=== PATIENT | female | born 1990 | race Caucasian/White ===

== ENCOUNTER → 2025-04-30 08:47 | Outpatient (REF) | payer BC, OTHER, SELFPAY | LOC: PNTC 08:47 | PROVIDERS: ATTENDING PHYSICIAN Obstetrics & Gynecology | DX: O36.60X0 Maternal care for excessive fetal growth, unspecified trimester, not applicable or unspecified (principal); O09.529 Supervision of elderly multigravida, unspecified trimester | CPT/HCPCS: 76816 ==

== ENCOUNTER 2025-05-06 23:16 | Inpatient (IN) | payer BC, OTHER, SELFPAY ==
[2025-05-06 23:36] VITALS: BP 118/83; BMI 30.6
[2025-05-07] MEDS: LR 1000 IV ×2 (00:22→01:22)
[2025-05-07 01:09] LABS: % Basophils 0.5 % (0-2); % Eosinophils 1.8 % (0-6); % Immature Granulocytes 0.4 % (0-0.5); % Lymphocytes 24.7 % (20.5-51.1); % Monocytes 7.4 % (1.7-9.3); % Neutrophils 65.2 % (42.2-75.2); Absolute Eosinophils 0.2 10^3/uL (0-0.7); Absolute Monocytes 0.6 10^3/uL (0.1-0.6); Absolute Neutrophils 5.3 10^3/uL (1.4-6.5); Hematocrit 37.1 % (37.0-47.0); Hemoglobin 12.8 g/dL (12.0-16.0); Mean Corp Hgb Conc. 34.5 g/dL (33.0-37.0); Mean Corpuscular Hgb 31.8 pg (27.0-31.0); Mean Corpuscular Volume 92.3 fL (81.0-99.0); Mean Platelet Volume 11.3 fL (7.4-10.4); Nucleated Red Blood Cells % 0 %; Platelet Count 193 10^3/uL (130-400); Red Blood Cell Count 4.02 10^6/uL (4.20-5.40); Red Cell Dist. Width 12.4 % (11.5-14.5); White Blood Cell Count 8.1 10^3/uL (4.8-10.8)
[2025-05-07] MEDS: STADOL 1 MG IV (06:46)
[2025-05-07] MEDS: PITOCIN 30 UNITS/NSS 500 ML IV (06:49)
[2025-05-07] MEDS: MOTRIN 600 MG PO ×2 (11:17→17:39)
[2025-05-07] MEDS: SENOKOT-S 1 TABLET PO (17:39)
[2025-05-07] MEDS: TYLENOL 650 MG PO (20:30)
[2025-05-08] MEDS: MOTRIN 600 MG PO ×4 (03:27→21:29)
[2025-05-08] MEDS: TYLENOL 650 MG PO ×4 (03:27→21:29)
[2025-05-08 05:07] LABS: Hematocrit 36.1 % (37.0-47.0); Hemoglobin 12.1 g/dL (12.0-16.0)
[2025-05-08] MEDS: SENOKOT-S 1 TABLET PO (09:13)
[2025-05-08] MEDS: PRENATAL PLUS 1 TABLET PO (09:13)
[2025-05-08 14:10] LABS: Syphilis/T. pallidum Ab Reflex Negative (Negative)
[2025-05-09] MEDS: TYLENOL 650 MG PO (08:13)
[2025-05-09] MEDS: PRENATAL PLUS 1 TABLET PO (08:14)
[2025-05-09] MEDS: MOTRIN 600 MG PO (08:14)
[2025-05-09] MEDS: SENOKOT-S 1 TABLET PO (08:14)
[2025-05-09] MEDS: M-M-R II 0.5 ML SC (11:57)
== END 2025-05-09 13:34 | disposition home or self-care (01) | DRG 807 ==
LOC: LDRP 23:16
PROVIDERS: Obstetrics & Gynecology; Student in an Organized Health Care Education/Training Program; ADMITTING PHYSICIAN Obstetrics & Gynecology
PROC: 10E0XZZ Delivery of Products of Conception, External Approach (ICD-10-PCS; 2025-05-07)
PROC: 3E0234Z Introduction of Serum, Toxoid and Vaccine into Muscle, Percutaneous Approach (ICD-10-PCS; 2025-05-09)
DX: O48.0 Post-term pregnancy (principal); Z37.0 Single live birth; Z3A.40 40 weeks gestation of pregnancy; O77.0 Labor and delivery complicated by meconium in amniotic fluid; O69.81X0 Labor and delivery complicated by cord around neck, without compression, not applicable or unspecified; Z23 Encounter for immunization
CPT/HCPCS: 36415; 85014; 85018; 85025; 86780; 86850; 86900; 86901; 87491; 87591; 90707